=== PATIENT | male | born 1955 | race Caucasian/White ===

== ENCOUNTER 2016-10-27 17:06 | Observation (INO) | payer BC ==
[~2016-10-27] VITALS: Ht 165.1 cm; Wt 78.1 kg
[~2016-10-27 17:06] MED LIST: ALL180 PO; ASPEC81 PO; CLTP PO; FLUT0.0529 NAE; GLCSC500400 PO; LPT40 PO; MULT-877 PO; VENL150C PO
[2016-10-27] MEDS ORDERED: SODIUM CHLORIDE 0.9% 1000ML 1,000 ML IV STA (17:29)
[2016-10-27] MEDS ORDERED: ONDANSETRON INJ 2 MG/ML 2 ML VIAL IV STA (17:29)
[2016-10-27 17:34] LABS: BASO % 0.2 %; BASO ABS # 0.02 K/uL (0-0.2); COMPLETE YES; EOS % 0.7 %; HEMATOCRIT 47.2 % (42-52); IG% 0.2 %; LYMPH % 31.4 %; LYMPH ABS # 2.73 K/uL (1.2-3.4); MEAN CELL VOLUME 84.1 fL (80-100); MEAN CORPUSCULAR HEMOGLOBIN 29.9 pg (25-34); MEAN CORPUSCULAR HGB CONC 35.6 g/dl (32-36); MEAN PLATELET VOLUME 9.4 fL (7.4-10.4); MONO % 6.8 %; NEUT % 60.7 %; PLATELET COUNT 237 K/uL (130-400); RED BLOOD COUNT 5.61 M/uL (4.7-6.1)
--- NOTE | 2016-10-27 17:44 | DIAGNOSTIC IMAGING REPORT ---
CHEST ONE VIEW PORTABLE CLINICAL HISTORY: Chest pain. COMPARISON STUDY: Chest radiograph June 27, 2009. FINDINGS: Lung volumes are normal. Lungs are clear. There is no pneumothorax or pleural effusion. Cardiac size is normal. Mediastinal contours are normal. There is no evidence of pulmonary edema. IMPRESSION: No acute cardiopulmonary findings. Electronically signed by: Errol Alvarado M.D. 10/27/2016 5:42 PM Dictated Date/Time: 10/27/2016 5:41 PM
[2016-10-27 17:49] LABS: ALT/SGPT 25 U/L (12-78); AST/SGOT 12 U/L (15-37); BLOOD UREA NITROGEN 22 mg/dl (7-18); BUN/CREATININE RATIO 16.9 (10-20); CARBON DIOXIDE 22 mmol/L (21-32); CHLORIDE 109 mmol/L (98-107); GLUCOSE 127 mg/dl (70-99); POTASSIUM 3.1 mmol/L (3.5-5.1); SODIUM 142 mmol/L (136-145)
[2016-10-27 17:54] LABS: ALKALINE PHOSPHATASE 118 U/L (45-117)
[2016-10-27] MEDS ORDERED: VENL150C56 PO (17:54)
[2016-10-27] MEDS ORDERED: MULT-506 PO (17:54)
[2016-10-27] MEDS ORDERED: ATOR-24 PO (17:54)
[2016-10-27] MEDS ORDERED: ASPI81TA28 PO (17:54)
[2016-10-27] MEDS ORDERED: GLUCTAB7 PO (17:54)
[2016-10-27] MEDS ORDERED: CALC-393 PO (17:54)
[2016-10-27] MEDS ORDERED: CLR10 PO (17:54)
[2016-10-27] MEDS ORDERED: POTASSIUM CHLORIDE 10 MEQ TABCR PO STA (18:45)
[2016-10-27 19:01] LABS: URINE APPEARANCE CLEAR (CLEAR); URINE BILIRUBIN NEG (NEG); URINE COLOR YELLOW; URINE NITRITE NEG (NEG); URINE SPECIFIC GRAVITY 1.012 (1.000-1.030); UROBILINOGEN NEG (NEG); ZZUR CULT IF INDIC CLEAN CATCH NO
[2016-10-27 19:05] LABS: MANUAL MICROSCOPIC REQUIRED? NO; REVIEW REQ? NO
[2016-10-27] MEDS ORDERED: ONDANSETRON INJ 2 MG/ML 2 ML VIAL IV PRN (19:45)
[2016-10-27] MEDS ORDERED: ACETAMINOPHEN 325 MG TAB PO PRN (19:45)
[2016-10-27] MEDS ORDERED: NITROGLYCERIN 0.4 MG SL PER TAB CHARGE SL PRN (19:45)
[2016-10-27] MEDS ORDERED: FEXO1TAB49 PO (19:55)
[2016-10-27] MEDS ORDERED: CALC500C70 PO (19:55)
[2016-10-27] MEDS ORDERED: MULT-164 PO (19:55)
[2016-10-27] MEDS ORDERED: FLUT0.15 (19:55)
[2016-10-27] MEDS ORDERED: IV FLUIDS COMPLETED PRN (20:00)
[2016-10-27] MEDS ORDERED: NON-FORMULARY MEDICATION (Glucosamine-Chondroitin-Vit C- (Glucosamine Chondroitin) 1 TAB) PO SCH (20:00)
[2016-10-27 20:02] LABS: MAGNESIUM 2.6 mg/dl (1.8-2.4)
--- NOTE | 2016-10-27 20:17 | History and Physical ---
History & Physical Date & Time of Service: Oct 27, 2016 at 20:01 Chief Complaint: Shortness of Breath Primary Care Physician: Héctor Mar MD History of Present Illness 61 year old male who presents to the ER with shortness of breath. Patient reports he gets frequent sinus infections and had problems with seasonal allergies. Last evening he developed a frontal headache and post nasal drip which he reports are signs of a sinus infection for him. He reports today that with minimal exertion he would feel short of breath. He would also have associated diaphoresis. His symptoms would improve with rest. He reports the sinus pressure and post nasal drip resolved today. Patient denies chest pressure , pain, or palpitations. He denies cough and sputum production. No lightheadedness, dizziness, diaphoresis, or syncopal events. No abdominal pain, nausea, vomiting, or diarrhea. He denies fever and chills. No urinary symptoms. Patient denies any recent long travel. No calf pain or swelling. In the ER, patient's BP is mildly elevated. EKG does not show any acute ST changes and initial troponin is negative. K+ is mildly low. Remainder of the labs are unremarkable. Past Medical/Surgical History Medical Problems: (1) Anxiety Status: Chronic (2) Dyslipidemia Status: Chronic (3) ARLETTE (obstructive sleep apnea) Status: Chronic Surgical Problems: (1) H/O repair of right rotator cuff Status: Chronic (2) History of arthroscopy of left shoulder Status: Chronic Social History Smoking Status: Former Smoker (remote history of smoking in his 20s for a short period of time) Alcohol Use: occasionally Marital Status: Immunizations History of Influenza Vaccine: Yes Influenza Vaccine Date: Jul 10, 2016 History of Tetanus Vaccine?: Yes Tetanus Immunization Date: Nov 03, 2013 Multi-Drug Resistant Organisms History of MDRO: No Allergies Coded Allergies: No Known Allergies (Unverified , 01/24/16) Home Medications Scheduled Aspirin (Aspirin Ec), 81 MG PO Q2D Atorvastatin (Lipitor), 40 MG PO QPM Calcium/Vitamin D (Os-Dani 500 Plus D), 1 TAB PO DAILY Fexofenadine Hcl (Taylor Allergy), 1 TAB PO HS Fluticasone Propionate (Nasal) (Flonase Allergy Relief), 2 SPRAYS NA DAILY Akwoxpusktb-Nwksthvzyrr-Ttc C- (Glucosamine Chondroitin), 1 TAB PO AMPM Multiple Vitamin (One-A-Day Mens), 1 TAB PO DAILY Venlafaxine Hcl (Effexor Extended Rel), 150 MG PO QAM Review of Systems 10 point review of systems was completed with the pertinent positives and negatives noted per the HPI Physical Exam Vital Signs Date Time Temp Pulse Resp B/P Pulse Ox O2 Delivery O2 Flow Rate FiO2 10/27/16 18:44 54 18 161/88 99 10/27/16 17:43 55 14 149/95 96 Room Air 10/27/16 17:31 60 10/27/16 17:25 60 16 160/94 97 Room Air 10/27/16 17:21 99 Room Air 10/27/16 17:18 98 Room Air 10/27/16 17:08 36.4 85 20 153/96 98 Room Air General Appearance: no apparent distress Head: normocephalic Eyes: normal inspection ENT: hearing grossly normal Neck: supple, no JVD Respiratory/Chest: lungs clear, normal breath sounds, no respiratory distress Cardiovascular: regular rate, rhythm, no edema, normal peripheral pulses Abdomen/GI: normal bowel sounds, non tender, soft Extremities/Musculoskelatal: normal inspection, no calf tenderness Neurologic/Psych: no motor/sensory deficits, alert, normal mood/affect, oriented x 3 Skin: normal color, warm/dry Diagnostics Laboratory Results Results Past 24 Hours Test 10/27/16 17:18 10/27/16 17:44 10/27/16 18:41 Range/Units White Blood Count 8.70 4.8-10.8 K/uL Red Blood Count 5.61 4.7-6.1 M/uL Hemoglobin 16.8 14.0-18.0 g/dL Hematocrit 47.2 42-52 % Mean Corpuscular Volume 84.1 80-100 fL Mean Corpuscular Hemoglobin 29.9 25-34 pg Mean Corpuscular Hemoglobin Concent 35.6 32-36 g/dl Platelet Count 237 130-400 K/uL Mean Platelet Volume 9.4 7.4-10.4 fL Neutrophils (%) (Auto) 60.7 % Lymphocytes (%) (Auto) 31.4 % Monocytes (%) (Auto) 6.8 % Eosinophils (%) (Auto) 0.7 % Basophils (%) (Auto) 0.2 % Neutrophils # (Auto) 5.28 1.4-6.5 K/uL Lymphocytes # (Auto) 2.73 1.2-3.4 K/uL Monocytes # (Auto) 0.59 0.11-0.59 K/uL Eosinophils # (Auto) 0.06 0-0.5 K/uL Basophils # (Auto) 0.02 0-0.2 K/uL RDW Standard Deviation 41.0 36.4-46.3 fL RDW Coefficient of Variation 13.3 11.5-14.5 % Immature Granulocyte % (Auto) 0.2 % Immature Granulocyte # (Auto) 0.02 0.00-0.02 K/uL Sodium Level 142 136-145 mmol/L Potassium Level 3.1 3.5-5.1 mmol/L Chloride Level 109 98-107 mmol/L Carbon Dioxide Level 22 21-32 mmol/L Anion Gap 11.0 3-11 mmol/L Blood Urea Nitrogen 22 7-18 mg/dl Creatinine 1.30 0.60-1.40 mg/dl Est Creatinine Clear Calc Drug Dose 56.7 ml/min Estimated GFR () 67.3 Estimated GFR (Non- 58.1 BUN/Creatinine Ratio 16.9 10-20 Random Glucose 127 70-99 mg/dl Calcium Level 9.0 8.5-10.1 mg/dl Total Bilirubin 0.4 0.2-1 mg/dl Direct Bilirubin 0.1 0-0.2 mg/dl Aspartate Amino Transf (AST/SGOT) 12 15-37 U/L Alanine Aminotransferase (ALT/SGPT) 25 12-78 U/L Alkaline Phosphatase 118 45-117 U/L Troponin I < 0.015 0-0.045 ng/ml Total Protein 7.9 6.4-8.2 gm/dl Albumin 4.2 3.4-5.0 gm/dl Lipase 144 73-393 U/L Influenza Type A Antigen Neg for Influ A NEG Influenza Type B Antigen Neg for Influ B NEG Urine Color YELLOW Urine Appearance CLEAR CLEAR Urine pH 8.0 4.5-7.5 Urine Specific [place] 1.012 1.000-1.030 Urine Protein NEG NEG Urine Glucose (UA) NEG NEG Urine Ketones NEG NEG Urine Occult Blood NEG NEG Urine Nitrite NEG NEG Urine Bilirubin NEG NEG Urine Urobilinogen NEG NEG Urine Leukocyte Esterase NEG NEG Urine WBC (Auto) 1-5 0-5 /hpf Urine RBC (Auto) 0-4 0-4 /hpf Urine Hyaline Casts (Auto) 0 0-5 /lpf Urine Epithelial Cells (Auto) 10-20 0-5 /lpf Urine Bacteria (Auto) NEG NEG Diagnostic Radiology CXR IMPRESSION: No acute cardiopulmonary findings. Impression Assessment and Plan EXERTIONAL DYSPNEA - admit to tele - patient presenting with sudden onset of exertional dyspnea - work up in ER unrevealing - CXR clear, EKG without acute ST changes, initial troponin negative, saturating well on room air - consider possible anginal equivalent - will continue to cycle cardiac enzymes , check resting echo, cardio consult - risk factors: HLD, ? HTN - BPs noted to be high today however currently not on therapy - continue ASA and statin - consider outpatient PFTs if cardiac work up unrevealing; noted no significant smoking history - PE considered less likely - no risk factors for embolism, no tachycardia, hypoxia, or chest pain ELEVATED BP - no history of HTN - BPs on presentation 160s/80s - will start low dose amlodipine ARLETTE - continue BiPap as per home settings DVT PROPHYLAXIS - SCDs DISPO - The patient will be placed as observation status for now until further work up is complete. VTE Prophylaxis VTE Risk Assessment Done? Y/N: Yes Risk Level: Low Given or contraindicated: SCD's Note ATTENDING ADDENDUM Record reviewed. Patient interviewed and examined in ED ~ 19:20. Care coordinated with KATHIE Rubalcava. Please refer to her documentation for patient's history. Briefly, 61 YO male with history of dyslipidemia. Experiencing worsening dyspnea on exertion without chest pain. No history of pulmonary disease. No fever or cough. EXAM: General- no acute distress VS- as noted Neck- no JVD Lungs- clear Heart- RRR, no murmur or gallop Abdomen- + BS, soft, nontender Extremities- no pretibial edema or calf tenderness Neuro- alert DATA: Serum troponin I < 0.015. K = 3.1. Other lab studies as noted. CXR neg. EKG performed at 17:13 reviewed and demonstrated NSR at 64 / minute, no acute ST or T-wave abnormalities. ASSESSMENT AND PLAN: Dyspnea on exertion, consider myocardial ischemia. Low clinical suspicion for pulmonary embolism; Well's score = 0. Check serial cardiac markers and EKG's. Check resting echo. Consult Cardiology. Consider outpatient PFT's if cardiac workup unrevealing. BP elevated. Heart rate in 50's at times. Start amlodipine. Serum K 3.1. Replace, follow. Please refer to LESVIA Marvin's documentation for discussion of other issues. Nicolas Miller MD .
[2016-10-27 20:30] VITALS: BP 162/90; PULSE 53; TEMP 36.8; O2SAT 96; Ht 165.1 cm; Wt 78.1 kg
[2016-10-27] MEDS ORDERED: POTASSIUM CHLORIDE 20 MEQ TABCR PO ONE (20:45)
[2016-10-27] MEDS ORDERED: AMLODIPINE BESYLATE 5 MG TAB PO ONE (20:45)
[2016-10-27] MEDS ORDERED: FEXOFENADINE HCL 180 MG TAB PO SCH (21:00)
[2016-10-27] MEDS ORDERED: ATORVASTATIN 40 MG TAB PO SCH (21:00)
--- NOTE | 2016-10-27 21:38 | EMERGENCY ROOM VISIT NOTE ---
History Report prepared by Alejandra: Selvin Robbins Under the Supervision of: Dr. Alfredo Agrawal D.O. First contact with patient: 17:18 Chief Complaint: SHORTNESS OF BREATH Stated Complaint: SICK IN STOMACH,SOB,HEADACHE History of Present Illness The patient is a 61 year old male who presents to the Emergency Room with complaints of recurrent shortness of breath throughout the day today. The patient becomes short of breath with minor exertion, including walking. He also complains of sweating and nausea. He is not short of breath or sweaty at rest. The patient denies chest pain or arm pain. He had jaw pain the other day when he was trying to sleep, and he was not short of breath at that time. The patient has not been on any trips recently or had any recent surgeries. He denies any history of cardiac disease or cancer. The patient does have a history of hyperlipidemia. He is not a smoker. 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 Patient denies headache, sore throat, ear pain, change in vision, fevers, hemoptysis, vomiting, diarrhea, pain with urination, and melena. Source of History: patient Onset: today Position: other (respiratory) Quality: other (short of breath) Timing: worsening (recurrent) Modifying Factors (Worsening): exertion Associated Symptoms: + diaphoresis, + nausea, No chest pain, No cough, No diarrhea, No fevers, No headache, No melena, No urinary symptoms, No vomiting Review of Systems See HPI for pertinent positives & negatives. A total of 10 systems reviewed and were otherwise negative. Past Medical & Surgical Medical Problems: (1) Anxiety (2) Dyslipidemia (3) ARLETTE (obstructive sleep apnea) Surgical Problems: (1) H/O repair of right rotator cuff (2) History of arthroscopy of left shoulder Family History Hypertension Social History Smoking Status: Former Smoker Marital Status: Housing Status: lives with significant other Occupation Status: employed Current/Historical Medications Scheduled Aspirin (Aspirin Ec), 81 MG PO Q2D Atorvastatin (Lipitor), 40 MG PO QPM Calcium/Vitamin D (Os-Dani 500 Plus D), 1 TAB PO DAILY Fexofenadine Hcl (Taylor Allergy), 1 TAB PO HS Fluticasone Propionate (Nasal) (Flonase Allergy Relief), 2 SPRAYS NA DAILY Byyydrodics-Gnzynjvtaxb-Hdz C- (Glucosamine Chondroitin), 1 TAB PO AMPM Multiple Vitamin (One-A-Day Mens), 1 TAB PO DAILY Venlafaxine Hcl (Effexor Extended Rel), 150 MG PO QAM Allergies Coded Allergies: No Known Allergies (Unverified , 01/24/16) Physical Exam Vital Signs Date Time Temp Pulse Resp B/P Pulse Ox O2 Delivery O2 Flow Rate FiO2 10/27/16 18:44 54 18 161/88 99 10/27/16 17:43 55 14 149/95 96 Room Air 10/27/16 17:31 60 10/27/16 17:25 60 16 160/94 97 Room Air 10/27/16 17:21 99 Room Air 10/27/16 17:18 98 Room Air 10/27/16 17:08 36.4 85 20 153/96 98 Room Air Physical Exam GENERAL: Sitting up in bed, disheveled, no acute distress, nontoxic. HEAD: No frontal or maxillary sinus tenderness. EYE EXAM: normal conjunctiva, PERRL and EOM's intact EARS: TMs are clear bilaterally. OROPHARYNX: no exudate, no erythema, lips, buccal mucosa, and tongue normal and mucous membranes are moist NECK: supple, no nuchal rigidity, no adenopathy, non-tender LUNGS: Clear to auscultation. Normal chest wall mechanics HEART: no murmurs, S1 normal and S2 normal ABDOMEN: abdomen soft, non-tender, normo-active bowel sounds, no masses, no rebound or guarding. BACK: Back is symmetrical on inspection and there is no deformity, no midline tenderness, no CVA tenderness. SKIN: no rashes and no bruising UPPER EXTREMITIES: upper extremities are grossly normal. LOWER EXTREMITIES: No pitting edema. NEURO EXAM: Normal sensorium, cranial nerves II-XII grossly intact, normal speech, no gross weakness of arms, no gross weakness of legs. Gross sensation intact. Medical Decision & Procedures ER Provider Diagnostic Interpretation: Radiology results as stated below per my review and the radiologist's interpretation: CHEST ONE VIEW PORTABLE CLINICAL HISTORY: Chest pain. COMPARISON STUDY: Chest radiograph June 27, 2009. FINDINGS: Lung volumes are normal. Lungs are clear. There is no pneumothorax or pleural effusion. Cardiac size is normal. Mediastinal contours are normal. There is no evidence of pulmonary edema. IMPRESSION: No acute cardiopulmonary findings. Electronically signed by: Errol Alvarado M.D. 10/27/2016 5:42 PM Dictated Date/Time: 10/27/2016 5:41 PM Laboratory Results 10/27/16 17:18 Red Blood Count 5.61, Mean Corpuscular Volume 84.1, Mean Corpuscular Hemoglobin 29.9, Mean Corpuscular Hemoglobin Concent 35.6, Mean Platelet Volume 9.4, Neutrophils (%) (Auto) 60.7, Lymphocytes (%) (Auto) 31.4, Monocytes (%) (Auto) 6.8, Eosinophils (%) (Auto) 0.7, Basophils (%) (Auto) 0.2, Neutrophils # (Auto) 5.28, Lymphocytes # (Auto) 2.73, Monocytes # (Auto) 0.59, Eosinophils # (Auto) 0.06, Basophils # (Auto) 0.02 10/27/16 17:18 Test 10/27/16 17:18 10/27/16 17:44 10/27/16 18:41 White Blood Count 8.70 K/uL (4.8-10.8) Red Blood Count 5.61 M/uL (4.7-6.1) Hemoglobin 16.8 g/dL (14.0-18.0) Hematocrit 47.2 % (42-52) Mean Corpuscular Volume 84.1 fL (80-100) Mean Corpuscular Hemoglobin 29.9 pg (25-34) Mean Corpuscular Hemoglobin Concent 35.6 g/dl (32-36) Platelet Count 237 K/uL (130-400) Mean Platelet Volume 9.4 fL (7.4-10.4) Neutrophils (%) (Auto) 60.7 % Lymphocytes (%) (Auto) 31.4 % Monocytes (%) (Auto) 6.8 % Eosinophils (%) (Auto) 0.7 % Basophils (%) (Auto) 0.2 % Neutrophils # (Auto) 5.28 K/uL (1.4-6.5) Lymphocytes # (Auto) 2.73 K/uL (1.2-3.4) Monocytes # (Auto) 0.59 K/uL (0.11-0.59) Eosinophils # (Auto) 0.06 K/uL (0-0.5) Basophils # (Auto) 0.02 K/uL (0-0.2) RDW Standard Deviation 41.0 fL (36.4-46.3) RDW Coefficient of Variation 13.3 % (11.5-14.5) Immature Granulocyte % (Auto) 0.2 % Immature Granulocyte # (Auto) 0.02 K/uL (0.00-0.02) Anion Gap 11.0 mmol/L (3-11) Est Creatinine Clear Calc Drug Dose 56.7 ml/min Estimated GFR () 67.3 Estimated GFR (Non- 58.1 BUN/Creatinine Ratio 16.9 (10-20) Calcium Level 9.0 mg/dl (8.5-10.1) Magnesium Level 2.6 mg/dl (1.8-2.4) Total Bilirubin 0.4 mg/dl (0.2-1) Direct Bilirubin 0.1 mg/dl (0-0.2) Aspartate Amino Transf (AST/SGOT) 12 U/L (15-37) Alanine Aminotransferase (ALT/SGPT) 25 U/L (12-78) Alkaline Phosphatase 118 U/L (45-117) Troponin I < 0.015 ng/ml (0-0.045) Total Protein 7.9 gm/dl (6.4-8.2) Albumin 4.2 gm/dl (3.4-5.0) Lipase 144 U/L (73-393) Influenza Type A Antigen Neg for Influ A (NEG) Influenza Type B Antigen Neg for Influ B (NEG) Urine Color YELLOW Urine Appearance CLEAR (CLEAR) Urine pH 8.0 (4.5-7.5) Urine Specific [place] 1.012 (1.000-1.030) Urine Protein NEG (NEG) Urine Glucose (UA) NEG (NEG) Urine Ketones NEG (NEG) Urine Occult Blood NEG (NEG) Urine Nitrite NEG (NEG) Urine Bilirubin NEG (NEG) Urine Urobilinogen NEG (NEG) Urine Leukocyte Esterase NEG (NEG) Urine WBC (Auto) 1-5 /hpf (0-5) Urine RBC (Auto) 0-4 /hpf (0-4) Urine Hyaline Casts (Auto) 0 /lpf (0-5) Urine Epithelial Cells (Auto) 10-20 /lpf (0-5) Urine Bacteria (Auto) NEG (NEG) Laboratory results per my review. Medications Administered Medications (Trade) Dose Ordered Sig/Yina Route Start Time Stop Time Status Last Admin Dose Admin Sodium Chloride (Nss 1000ml) 1,000 ml @ 999 mls/hr Q1H1M STAT IV 10/27/16 17:29 10/27/16 18:29 DC 10/27/16 17:29 999 MLS/HR Ondansetron HCl (Zofran Inj) 4 mg NOW STAT IV 10/27/16 17:29 10/27/16 17:30 DC 10/27/16 17:29 4 MG Potassium Chloride (Klor-Con M10) 40 meq NOW STAT PO 10/27/16 18:45 10/27/16 18:46 DC 10/27/16 18:55 40 MEQ ECG Indication: SOB/dyspnea Rate (beats per minute): 64 Rhythm: sinus rhythm Findings: left axis deviation, no ectopy Comparison ECG Date: 03 February 2013 Change: no significant change ED Course ED COURSE: Vital signs were reviewed and showed hypertension. The patients medical record was reviewed The above diagnostic studies were performed and reviewed. ED treatments and interventions as stated above. 1720: The patient was evaluated in room C1b. A complete history and physical examination was performed. 1729: Zofran 4 mg IV, NSS 1000 ml @ 999 mls/hr. 1845: Potassium Chloride 40 meq IV. 1908: Discussed the case with KATHIE Rubalcava, [facility] Hospitalist. The patient will be evaluated. 1910: Upon reevaluation, the patient is doing well.I discussed my findings with the patient and he understands and agrees with the treatment plan. Based on the patients age, coexisting illnesses, exam and lab findings the decision to treat as an inpatient was made. The patient remained stable while under my care. The patient will be evaluated for further management. Medical Decision Differential diagnosis: Etiologies such as infections, reactive airway disease, pneumonia, pneumothorax, COPD, CHF, cardiac ischemia, pulmonary embolism, musculoskeletal, gastrointestinal, as well as others were entertained. Patient is a 61-year-old male who presents the ER for exertional shortness of breath associated with diaphoresis and nausea. He has no abdominal complaints. No chest pain. EKG is unchanged from his previous. Troponin was negative as well as chest x-ray was unremarkable. CBC along with BMP show a mild hypokalemia at 3.1. Bilirubin along with AST were unremarkable. Lipase was normal. Influenza was negative. Although I favor his symptoms are likely viral , exertional shortness of breath a/w nausea and diaphoresis is concerning as these resolved with rest for possible anginal equivalent. I discussed this with internal medicine patient was observed. Patient and family were updated at bedside. Consults Time Called: 1899 Consulting Physician: KATHIE Rubalcava [facility] Hospitalist Returned Call: 1907 1907: Discussed the case with KATHIE Rubalcava [facility] Hospitalist. The patient will be evaluated. Impression Primary Impression: Exertional dyspnea Additional Impression: Hypokalemia Scribe Attestation The scribe's documentation has been prepared under my direction and personally reviewed by me in its entirety. I confirm that the note above accurately reflects all work, treatment, procedures, and medical decision making performed by me. Departure Information Dispostion Being Evaluated By Hospitalist Referrals Héctor Mar MD (PCP) Patient Instructions My [facility] Problem Qualifiers
[2016-10-27 23:31] VITALS: BP 133/75; PULSE 58; TEMP 36.9; O2SAT 95
[2016-10-28 04:01] VITALS: BP 124/74; PULSE 56; TEMP 36.7; O2SAT 95
[2016-10-28 05:22] LABS: HEMATOCRIT 44.4 % (42-52); MEAN CELL VOLUME 86.2 fL (80-100); MEAN CORPUSCULAR HEMOGLOBIN 29.7 pg (25-34); MEAN CORPUSCULAR HGB CONC 34.5 g/dl (32-36); MEAN PLATELET VOLUME 9.6 fL (7.4-10.4); PLATELET COUNT 224 K/uL (130-400); RED BLOOD COUNT 5.15 M/uL (4.7-6.1); WHITE BLOOD COUNT 7.97 K/uL (4.8-10.8)
[2016-10-28 05:44] LABS: BLOOD UREA NITROGEN 18 mg/dl (7-18); BUN/CREATININE RATIO 16.7 (10-20); CALCIUM 8.5 mg/dl (8.5-10.1); CARBON DIOXIDE 26 mmol/L (21-32); CHLORIDE 113 mmol/L (98-107); GLUCOSE 106 mg/dl (70-99); POTASSIUM 4.5 mmol/L (3.5-5.1); SODIUM 145 mmol/L (136-145)
[2016-10-28 05:53] LABS: CHOLESTEROL 165 mg/dl (0-200); CHOLESTEROL/HDL RATIO 3.8; HDL CHOLESTEROL 44 mg/dl; LDL CHOLESTEROL CALCULATED 90 mg/dl; TRIGLYCERIDES 155 mg/dl (0-150); VERY LOW DENSITY LIPOPROT CALC 31 mg/dl
[2016-10-28 07:49] VITALS: BP 129/82; PULSE 68; TEMP 37; O2SAT 95
[2016-10-28] MEDS ORDERED: AMLODIPINE BESYLATE 5 MG TAB PO SCH (09:00)
[2016-10-28] MEDS ORDERED: FLUTICASONE PROPIONATE NA SPR 16 GM BTL SCH (09:00)
[2016-10-28] MEDS ORDERED: MULTIVITAMIN TAB PO SCH (09:00)
[2016-10-28] MEDS ORDERED: CALCIUM 600MG + VIT D 400 IU TAB PO SCH (09:00)
[2016-10-28] MEDS ORDERED: VENLAFAXINE HCL XR 150 MG CAPXR PO SCH (09:00)
[2016-10-28] MEDS ORDERED: ASPIRIN 81 MG ECTAB PO SCH (09:00)
--- NOTE | 2016-10-28 09:31 | ECHOCARDIOGRAM REPORT ---
*NOTICE TO RECEIVING [employer]Y This information is strictly Confidential and protected under [place] law. [place] law prohibits you from making any further disclosure of this information unless further disclosure is expressly permitted by the written consent of the person to whom it pertains or is authorized by law. A general authorization for the release of medical or other information is not sufficient for this purpose. Hospital accepts no responsibility if the information is made available to any other person, INCLUDING THE PATIENT. Interpretation Summary * Name: MELYSSA ANN Study Date: 10/28/2016 08:03 AM BP: 129/82 mmHg * Patient Location: S244 HR: 55 * : 1955 (M/d/yyyy) Gender: Male Height: 65 in * Age: 61 yrs Ethnicity: [place] Weight: 176 lb * Ordering Physician: Apple Marvin * Referring Physician: Self, Referred * Performed By: Tere Mclean RCS * * Reason For Study: EXERTIONAL DYSPNEA * BSA: 1.9 m2 * -- Conclusions -- * Normal LV chamber size with mild concentric LVH. * Normal LV systolic function, EF 55-60%. * No segmental left ventricular wall motion abnormalities are noted. * Grade II diastolic dysfunction. * Physiologic/minimal aortic insufficiency. Procedure Details * A complete two-dimensional transthoracic echocardiogram was performed (2D, M-mode, Doppler and color flow Doppler). Left Ventricle * The left ventricle is normal in size. * There is mild concentric left ventricular hypertrophy. * Ejection Fraction = 55-60%. * Left ventricular systolic function is normal. * No segmental left ventricular wall motion abnormalities are noted. * The left ventricular wall motion is normal. Right Ventricle * The right ventricular cavity size is normal (basal dimension <4.2 cm in right ventricular apical 4-chamber view). * The right ventricular systolic function is normal as assessed by tricuspid annular plane systolic excursion (TAPSE) (normal >1.5 cm). Atria * The left atrial size is normal. * Right atrial size is normal. * No ASD detected; PFO is not assessed. Mitral Valve * The mitral valve is normal in structure and function. Tricuspid Valve * The tricuspid valve is normal in structure and function. Aortic Valve * The aortic valve is trileaflet. * Physiologic/minimal aortic insufficiency. Pulmonic Valve * The pulmonary valve is not well seen, but the Doppler examination is normal without significant regurgitation or stenosis. Great Vessels * The aortic root and proximal ascending aorta are normal sized. Pericardium/Pleural * There is no pericardial effusion. Left Ventricular Diastolic Function * Diastolic dysfunction, Grade II (pseudonormalization pattern). MMode 2D Measurements and Calculations IVSd 1.4 cm IVSs 1.7 cm LVIDd 4.8 cm LVIDs 3.3 cm LVPWd 1.1 cm LVPWs 1.4 cm IVS/LVPW 1.3 FS 32.0 % EDV(Teich) 106.5 ml ESV(Teich) 42.6 ml EF(Teich) 60.0 % EDV(cubed) 109.3 ml ESV(cubed) 34.4 ml EF(cubed) 68.5 % % IVS thick 17.5 % % LVPW thick 29.3 % LV mass(C)d 233.1 grams LV mass(C)dI 124.4 grams/m\S\2 LV mass(C)s 184.3 grams LV mass(C)sI 98.4 grams/m\S\2 SV(Teich) 63.9 ml SI(Teich) 34.1 ml/m\S\2 SV(cubed) 74.8 ml SI(cubed) 39.9 ml/m\S\2 Ao root diam 3.7 cm Ao root area 10.7 cm\S\2 ACS 2.3 cm LA dimension 3.5 cm LA/Ao 0.94 LVOT diam 2.0 cm LVOT area 3.1 cm\S\2 LVAd ap4 32.8 cm\S\2 LVLd ap4 7.5 cm EDV(MOD-sp4) 112.0 ml EDV(sp4-el) 121.2 ml LVAs ap4 18.5 cm\S\2 LVLs ap4 5.7 cm ESV(MOD-sp4) 49.5 ml ESV(sp4-el) 51.2 ml EF(MOD-sp4) 55.8 % EF(sp4-el) 57.7 % LVAd ap2 27.9 cm\S\2 LVLd ap2 7.3 cm EDV(MOD-sp2) 83.7 ml EDV(sp2-el) 89.7 ml LVAs ap2 14.6 cm\S\2 LVLs ap2 5.7 cm ESV(MOD-sp2) 32.1 ml ESV(sp2-el) 31.9 ml EF(MOD-sp2) 61.7 % EF(sp2-el) 64.5 % LVLd %diff -2.69 % EDV(MOD-bp) 98.1 ml LVLs %diff -0.29 % ESV(MOD-bp) 39.9 ml EF(MOD-bp) 59.4 % SV(MOD-sp4) 62.5 ml SI(MOD-sp4) 33.3 ml/m\S\2 SV(MOD-sp2) 51.6 ml SI(MOD-sp2) 27.5 ml/m\S\2 SV(MOD-bp) 58.3 ml SI(MOD-bp) 31.1 ml/m\S\2 SV(sp4-el) 70.0 ml SI(sp4-el) 37.4 ml/m\S\2 SV(sp2-el) 57.8 ml SI(sp2-el) 30.9 ml/m\S\2 Doppler Measurements and Calculations MV E max tr 63.1 cm/sec MV A max tr 58.8 cm/sec MV E/A 1.1 MV P1/2t max tr 75.9 cm/sec MV P1/2t 75.4 msec MVA(P1/2t) 2.9 cm\S\2 MV dec slope 294.8 cm/sec\S\2 MV dec time 0.25 sec Ao V2 max 109.1 cm/sec Ao max PG 4.8 mmHg Ao max PG (full) 2.1 mmHg ASHLEIGH(V,A) 2.4 cm\S\2 ASHLEIGH(V,D) 2.4 cm\S\2 LV V1 max PG 2.7 mmHg LV V1 max 81.9 cm/sec PA V2 max 92.3 cm/sec PA max PG 3.4 mmHg TR max tr 239.9 cm/sec
[2016-10-28 11:30] VITALS: BP 120/70; PULSE 56; TEMP 37.1; O2SAT 98
--- NOTE | 2016-10-28 13:35 | Progress Note ---
Internal Med Progress Note Date of Service: Oct 28, 2016. Provider Documentation: SUBJECTIVE: feels absolutely fine no complain of chest pain or SOB no ALEXANDRA evaluated by Cardiology earlier stable to be discharged home out pt follow with Cardiac stress test at [facility] Cardiology clinic OBJECTIVE: Vital Signs-as noted below Exam: General-no sign of distress, very pleasant Eyes-sclera non icteric , PERRLA/EOMI ENT-NAD Neck-supple, trachea midline , no thyromegaly Lungs-CTA ,no wheeze or rales Heart-regular , S1/S2 Abdomen-soft, non tender Extremities-no lower ext edema , no calf tenderness Neuro-AAO x3, no focal neurological deficit Lab data as noted below. ASSESSMENT & PLAN: EXERTIONAL DYSPNEA - symptom has resolved - work up has been unrevealing - CXR clear, EKG without acute ST changes, initial troponin negative, saturating well on room air - ECHO ordered continue ASA and statin appreciate input form cardiology no evidence of ACS out pt Cardiac stress test ; Cardiology office will schedule and call with appointment stable to be discharged home today HTN -much improved after addition of low dose Norvasc - no history of HTN - BPs on presentation 160s/80s - started low dose amlodipine -will be discharged home with 2.5 mg PO Norvasc -will have out pt follow up with Family Physician for BP monitoring and medication adjustment if needed ARLETTE - continue BiPap as per home settings at night DVT PROPHYLAXIS - SCDs -ambulate DISPOSITION Discharge home today Vital Signs: Lab Results:
--- NOTE | 2016-10-28 13:37 | Discharge Instructions ---
Discharge Instructions Date of Service Oct 28, 2016. Admission Reason for Admission: Exertional Dyspnea Discharge Discharge Diagnosis / Problem: EXERTIONAL SHORTNESS OF BREATH /NO CARDIAC EVENT /CHRONIC SINUS HEADACHE / Discharge Goals Goal(s): Improve disease control, Diagnostic testing, Therapeutic intervention Activity Recommendations Activity Limitations: resume your previous activity . Instructions / Follow-Up Instructions / Follow-Up HOSPITAL FOLLOW UP WITH DR RIVERA IN A WEEK -OFFICE WILL CALL WITH APPOINTMENT YOU ARE STARTED ON A NEW MEDICATION : NORVASC 2.5 MG BY MOUTH DAILY PLEASE FOLLOW UP WITH DR RIVERA FOR FURTHER FOLLOW UP FOR BLOOD PRESSURE MANAGEMENT AND MEDICATION DOSE ADJUSTMENT IF NEEDED OUT PATIENT CARDIAC STRESS TEST AT [facility] -OFFICE WILL CALL WITH APPOINTMENT CT OF HEAD AND SINUSES OUT PATIENT -FOR CHRONIC SINUS HEADACHE PLEASE HAVE ENT FOLLOW UP TO ASSESS CHRONIC SINUSITIS /HEADACHE Current Hospital Diet Patient's current hospital diet: AHA Diet (Heart Healthy) Discharge Diet Recommended Diet: AHA Diet (Heart Healthy) Pending Studies Studies pending at discharge: yes List of pending studies: CT OF HEAD AND SINUS -FOR CHRONIC SINUSITIS /SINUS HEADACHE Laboratory Results Hemoglobin A1c Test 10/27/16 17:18 Range/Units Lipid Panel Test 10/28/16 05:10 Range/Units Triglycerides Level 155 H 0-150 mg/dl Cholesterol Level 165 0-200 mg/dl HDL Cholesterol 44 mg/dl Cholesterol/HDL Ratio 3.8 LDL Cholesterol, Calculated 90 mg/dl Medical Emergencies . Who to Call and When: Medical Emergencies: If at any time you feel your situation is an emergency, please call 911 immediately. . Non-Emergent Contact Non-Emergency issues call your: Primary Care Provider . . "Provider Documentation" section prepared by Laury Rangel. VTE Core Measure Inpt VTE Proph given/why not?: SCD's [place] Drug Monitoring Program Search Results: no issues identified
[2016-10-28] MEDS ORDERED: AMLO-110 PO (13:48)
--- NOTE | 2016-10-28 13:49 | CARDIOLOGY CONSULTATION ---
DATE OF CONSULTATION: 10/28/2016 CONSULTATION REQUESTED BY: Dr. Rangel. REASON FOR CONSULTATION: Shortness of breath. HISTORY OF PRESENT ILLNESS: Mr. Salcedo is a very pleasant 61-year-old gentleman who presented to [facility] Emergency Department on 10/27/2016 with a complaint of shortness of breath and diaphoresis. The patient states that he is recently getting overt sinus infection, which he gets on a regular basis. He states for the last several days, he has been having a frontal headache along with increased sinus pressure, upper airway difficulty breathing and some nausea secondary to postnasal drip. He states that he felt as though the infection was starting to break; however, yesterday when anytime he would go outside in the yard, his symptoms would worsen, his sinus pressure would increase, his headache would increase, he did have more difficulty moving air in his upper airway and he became diaphoretic. He states that this is similar to similar to previous sinus infections in the past; however, he came into the Emergency Room anyway. In the Emergency Room, his initial evaluation was unremarkable and he was admitted to telemetry. He denied ever experiencing any chest pain, shortness of breath, chest palpitations, lightheadedness, dizziness, or syncope. PAST SURGICAL HISTORY: 1. Bilateral shoulder surgeries. 2. Wrist surgery. PAST MEDICAL HISTORY: 1. Dyslipidemia. 2. Seasonal allergies. 3. Anxiety. 4. Obstructive sleep apnea, intolerant of CPAP. FAMILY HISTORY: Denies any premature coronary artery disease or sudden cardiac . SOCIAL HISTORY: The patient has a very remote tobacco use history. Social cigarettes in his 20s. Drinks occasional alcohol. Denies any recreational drug use. He is and lives at home with his . He has 3 kids. 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 He does not exercise outside of work. REVIEW OF SYSTEMS: As per HPI, all other systems reviewed and negative at this time. ALLERGIES: No known drug allergies. MEDICATIONS AN OUTPATIENT: 1. Aspirin 81 mg every other day. 2. Atorvastatin 40 mg daily. 3. Taylor daily. 4. Flonase daily. 5. Multivitamin daily. 6. Effexor daily. PHYSICAL EXAMINATION: VITAL SIGNS: Temperature 37.1, pulse 56, respiratory rate 12, and blood pressure 120/70. GENERAL: Awake, alert, and oriented x3 in no acute distress. The patient does have a nasal voice, likely secondary to sinus congestion. HEENT: Normocephalic and atraumatic. Pupils are equal, round, and reactive to light and accommodation. Extraocular muscles intact. Anicteric sclerae. Moist mucous membranes. NECK: No JVD and no bruit. CARDIOVASCULAR: Regular. No S4. Normal S1 and S2. No S3. No murmurs, rubs or gallops. PULMONARY: Clear to auscultation bilaterally. No rales, rhonchi, or wheezing. ABDOMEN: Bowel sounds x4, soft. No rebound, guarding, or tenderness. No organomegaly. EXTREMITIES: No clubbing, cyanosis or edema. +2 pedal pulses bilaterally. SKIN: Warm and dry. TEST RESULTS: Two-D echocardiogram was read as normal LV chamber size with mild concentric LVH, normal LV systolic function, EF 55%-60%, no segmental wall motion abnormalities were noted, grade 2 diastolic dysfunction, and physiologic/minimal aortic insufficiency. Chest x-ray performed in the Emergency Department independently reviewed at this time shows normal sinus rhythm, left axis deviation, questionable decrease in the amplitude of the anterior T waves. However, no signs of active ischemia. LABORATORY STUDIES OF SIGNIFICANCE: Troponin negative x3. CPK of 118. IMPRESSION: 1. Sinus infection. 2. Chronic sinusitis. 3. Episode of diaphoresis. RECOMMENDATIONS: and Mrs. Salcedo were counseled that I highly doubt that this was a cardiac event and I have recommended [id number] treatment for his sinusitis along with followup with his primary care physician. For completeness sake, given his risk factors for coronary artery disease along with the fact that he did have some diaphoresis with exertion, we will perform an outpatient stress test as per the patient's preference. Otherwise, no medication changes will be made at this time. It is okay to discharge the patient to home from a cardiac standpoint. My office will arrange outpatient stress testing.
--- NOTE | 2016-10-28 13:56 | Discharge Summary ---
Discharge Summary Date of Service Oct 28, 2016. Discharge Summary Admission Date: Oct 27, 2016 at 19:42 Discharge Date: Oct 28, 2016 Discharge Disposition: Home Principal Diagnosis: EXERTIONAL SHORTNESS OF BREATH /NO CARDIAC EVENT /CHRONIC SINUS HEADACHE / Procedures: ECHO : 10/28/16 * Normal LV chamber size with mild concentric LVH. * Normal LV systolic function, EF 55-60%. * No segmental left ventricular wall motion abnormalities are noted. * Grade II diastolic dysfunction. * Physiologic/minimal aortic insufficiency. Consultations: [facility] CARDIOLOG[facility] DR VIRGIL DINERO Pending Studies/Follow-Up: HOSPITAL FOLLOW UP WITH DR RIVERA IN A WEEK -OFFICE WILL CALL WITH APPOINTMENT YOU ARE STARTED ON A NEW MEDICATION : NORVASC 2.5 MG BY MOUTH DAILY PLEASE FOLLOW UP WITH DR RIVERA FOR FURTHER FOLLOW UP FOR BLOOD PRESSURE MANAGEMENT AND MEDICATION DOSE ADJUSTMENT IF NEEDED OUT PATIENT CARDIAC STRESS TEST AT [facility] -OFFICE WILL CALL WITH APPOINTMENT CT OF HEAD AND SINUSES OUT PATIENT -FOR CHRONIC SINUS HEADACHE PLEASE HAVE ENT FOLLOW UP TO ASSESS CHRONIC SINUSITIS /HEADACHE Medication Reconciliation New Medications: Amlodipine (Norvasc) 5 Mg Tab 2.5 MG PO DAILY for 30 Days, #15 TAB 2 Refills Continued Medications: Aspirin (Aspirin Ec) 81 Mg Tab 81 MG PO Q2D Atorvastatin (Lipitor) 40 Mg Tab 40 MG PO QPM, TAB Calcium/Vitamin D (Os-Dani 500 Plus D) Tab 1 TAB PO DAILY, TAB Fexofenadine Hcl (Taylor Allergy) 180 Mg Tab 1 TAB PO HS for 30 Days, TAB 2 Refills Fluticasone Propionate (Nasal) (Flonase Allergy Relief) 50 Mcg/Act Spr 2 SPRAYS NA DAILY Lpgqryjrxok-Tebjwejegvl-Nvt C- (Glucosamine Chondroitin) 1 Tab Tab 1 TAB PO AMPM Multiple Vitamin (One-A-Day Mens) 1 Tab Tab 1 TAB PO DAILY Venlafaxine Hcl (Effexor Extended Rel) 150 Mg Cap 150 MG PO QAM, CAP Admission Information HPI (per Admitting provider): 61 year old male who presents to the ER with shortness of breath. Patient reports he gets frequent sinus infections and had problems with seasonal allergies. Last evening he developed a frontal headache and post nasal drip which he reports are signs of a sinus infection for him. He reports today that with minimal exertion he would feel short of breath. He would also have associated diaphoresis. His symptoms would improve with rest. He reports the sinus pressure and post nasal drip resolved today. Patient denies chest pressure , pain, or palpitations. He denies cough and sputum production. No lightheadedness, dizziness, diaphoresis, or syncopal events. No abdominal pain, nausea, vomiting, or diarrhea. He denies fever and chills. No urinary symptoms. Patient denies any recent long travel. No calf pain or swelling. In the ER, patient's BP is mildly elevated. EKG does not show any acute ST changes and initial troponin is negative. K+ is mildly low. Remainder of the labs are unremarkable. Physical Exam (per Admitting): General Appearance: no apparent distress Head: normocephalic Eyes: normal inspection ENT: hearing grossly normal Neck: supple, no JVD Respiratory/Chest: lungs clear, normal breath sounds, no respiratory distress Cardiovascular: regular rate, rhythm, no edema, normal peripheral pulses Abdomen/GI: normal bowel sounds, non tender, soft Extremities/Musculoskelatal: normal inspection, no calf tenderness Neurologic/Psych: no motor/sensory deficits, alert, normal mood/affect, oriented x 3 Skin: normal color, warm/dry Hospital Course EXERTIONAL DYSPNEA - symptom has resolved - work up has been unrevealing - CXR clear, EKG without acute ST changes, initial troponin negative, saturating well on room air - ECHO ordered continue ASA and statin appreciate input form cardiology no evidence of ACS out pt Cardiac stress test ; Cardiology office will schedule and call with appointment stable to be discharged home today HTN -much improved after addition of low dose Norvasc - no history of HTN - BPs on presentation 160s/80s - started low dose amlodipine -will be discharged home with 2.5 mg PO Norvasc -will have out pt follow up with Family Physician for BP monitoring and medication adjustment if needed SINUS HEADACHE ; complains of frontal headache, with sinus pressure and post nasal drip pain rad already been using Flonase out pt follow up with ENT no fever or chills, no sinus pain and CT of sinus at [facility] ARLETTE - continue BiPap as per home settings at night DVT PROPHYLAXIS - SCDs -ambulate DISPOSITION Discharge home today Discharge Instructions Discharge Instructions Date of Service Oct 28, 2016. Admission Reason for Admission: Exertional Dyspnea Discharge Discharge Diagnosis / Problem: EXERTIONAL SHORTNESS OF BREATH /NO CARDIAC EVENT /CHRONIC SINUS HEADACHE / Discharge Goals Goal(s): Improve disease control, Diagnostic testing, Therapeutic intervention Activity Recommendations Activity Limitations: resume your previous activity . Instructions / Follow-Up Instructions / Follow-Up HOSPITAL FOLLOW UP WITH DR RIVERA IN A WEEK -OFFICE WILL CALL WITH APPOINTMENT YOU ARE STARTED ON A NEW MEDICATION : NORVASC 2.5 MG BY MOUTH DAILY PLEASE FOLLOW UP WITH DR RIVERA FOR FURTHER FOLLOW UP FOR BLOOD PRESSURE MANAGEMENT AND MEDICATION DOSE ADJUSTMENT IF NEEDED OUT PATIENT CARDIAC STRESS TEST AT [facility] -OFFICE WILL CALL WITH APPOINTMENT CT OF HEAD AND SINUSES OUT PATIENT -FOR CHRONIC SINUS HEADACHE PLEASE HAVE ENT FOLLOW UP TO ASSESS CHRONIC SINUSITIS /HEADACHE Current Hospital Diet Patient's current hospital diet: AHA Diet (Heart Healthy) Discharge Diet Recommended Diet: AHA Diet (Heart Healthy) Pending Studies Studies pending at discharge: yes List of pending studies: CT OF HEAD AND SINUS -FOR CHRONIC SINUSITIS /SINUS HEADACHE Laboratory Results Hemoglobin A1c Test 10/27/16 17:18 Range/Units Lipid Panel Test 10/28/16 05:10 Range/Units Triglycerides Level 155 H 0-150 mg/dl Cholesterol Level 165 0-200 mg/dl HDL Cholesterol 44 mg/dl Cholesterol/HDL Ratio 3.8 LDL Cholesterol, Calculated 90 mg/dl Medical Emergencies . Who to Call and When: Medical Emergencies: If at any time you feel your situation is an emergency, please call 911 immediately. . Non-Emergent Contact Non-Emergency issues call your: Primary Care Provider . . "Provider Documentation" section prepared by Laury Rangel. VTE Core Measure Inpt VTE Proph given/why not?: SCD's [place] Drug Monitoring Program Search Results: no issues identified Additional Copies To Virgil Dinero D.O. Doberstein, Timothy F., MD
[2016-10-28 13:57] VITALS: BP 120/70; PULSE 56; TEMP 37.1; O2SAT 98
[2016-10-29 08:13] LABS: ESTIMATED AVERAGE GLUCOSE 126 mg/dl; HA1C FLAG Normal (Normal)
== END 2016-10-28 14:18 | disposition home or self-care (01) ==
LOC: ENRESERVTM → ENRESERVDT → C.EDB 17:07 → C.2T 19:42
PROVIDERS: ADMIT Hospitalist; ATTEND Hospitalist
DX: R06.02 Shortness of breath (principal); J32.9 Chronic sinusitis, unspecified; I10 Essential (primary) hypertension; F41.9 Anxiety disorder, unspecified; E78.5 Hyperlipidemia, unspecified; E87.6 Hypokalemia; G47.33 Obstructive sleep apnea (adult) (pediatric); Z87.891 Personal history of nicotine dependence; Z79.82 Long term (current) use of aspirin

== ENCOUNTER 2018-09-27 10:31 | Observation (INO) ==
[2018-09-27] MEDS ORDERED: ASPIRIN CHEW 324 MG PO STA (10:51)
[2018-09-27 11:10] LABS: Basophils # (auto) 0.02 K/uL (0-0.2); Basophils % (auto) 0.3 %; Eosinophils # (auto) 0.28 K/uL (0-0.5); Eosinophils % (auto) 3.9 %; Hematocrit (blood only) 44.9 % (42-52); Hemoglobin 15.5 g/dL (14.0-18.0); Immature Granulocytes # (auto) 0.02 K/uL (0.00-0.02); Immature Granulocytes % (auto) 0.3 %; Lymphocytes # (auto) 1.65 K/uL (1.2-3.4); Lymphocytes % (auto) 22.8 %; Mean Corpuscular Hgb Conc 34.5 g/dL (32-36); Mean Corpuscular Volume 91.6 fL (80-100); Mean Platelet Volume 9.5 fL (7.4-10.4); Monocytes # (auto) 0.36 K/uL (0.11-0.59); Neutrophils # (auto) 4.91 K/uL (1.4-6.5); Neutrophils % (auto) 67.7 %; Platelet Count 201 K/uL (130-400); RDW Coefficient of Variation 12.5 % (11.5-14.5); RDW Standard Deviation 42.1 fL (36.4-46.3); White Blood Count 7.24 K/uL (4.8-10.8)
[2018-09-27 11:28] LABS: Alanine Aminotransferase 32 U/L (12-78); Albumin Level 3.6 gm/dl (3.4-5.0); Aspartate Aminotransferase 15 U/L (15-37); BUN Creatinine Ratio 15.8 (10-20); Blood Urea Nitrogen 16 mg/dl (7-18); Calcium 8.6 mg/dl (8.5-10.1); Carbon Dioxide 31 mmol/L (21-32); Chloride 105 mmol/L (98-107); Creatinine Clr Calc Pharmacy 73.5 ml/min; Est GFR (African American) 93.4; Est GFR (Non-African American) 80.6; Glucose 97 mg/dl (70-99); Potassium 3.8 mmol/L (3.5-5.1); Sodium 138 mmol/L (136-145)
[2018-09-27 11:32] LABS: D Dimer < 190 ug/L FEU (0-500)
[2018-09-27 11:33] LABS: Alkaline Phosphatase 94 U/L (45-117); Bilirubin,Total 0.5 mg/dl (0.2-1); Globulin 3.5 gm/dl (2.5-4.0); Total Protein 7.1 gm/dl (6.4-8.2); Troponin I < 0.015 ng/ml (0-0.045)
--- NOTE | 2018-09-27 11:38 | XRay Report ---
SINGLE VIEW CHEST CLINICAL HISTORY: Atypical chest pain. FINDINGS: An AP, portable, upright chest radiograph is compared to study dated 10/27/2016. The examina tion is degraded by portable technique and apical lordotic positioning. The cardiomediastinal silhou ette is unremarkable. The lungs and pleural spaces are clear. No pneumothorax is seen. There are heal ed left-sided rib fractures. IMPRESSION: No active disease in the chest. Electronically signed by: Himanshu Sánchez M.D. 09/27/2018 11:37 AM
--- NOTE | 2018-09-27 16:04 | History & Physical Report ---
Date of Service September 27, 2018 Assessment & Plan (1) Chest pain: This is a 63-year-old male with significant past medical history of HTN, HLD, diastolic dysfunction, ARLETTE intolerant to CPAP, tobacco abuse, GREG presents to [facility] secondary to chest pain and ALEXANDRA times 3 days. In ED workup relatively unremarkable. Blood pressure adequate at 128/73, initial troponin within normal limits, chest x-ray negative for acute abnormality, EKG normal sinus rhythm without ST or T wave changes. Further lab work including a CBC, CMP, d-dimer, lipase, TSH were within normal limits. DDX but not limited to: Coronary artery disease, obstructive sleep apnea-not tolerating CPAP, possible COPD given prior smoking history, pulmonary hypertension, valvular heart disease -Admit to telemetry under observation -Obtain resting echocardiogram -Serial troponins -Repeat ECG in a.m. -If workup unremarkable refer back to Dr. Dinero for repeat stress testing as well as follow-up with pulmonary/sleep medicine -Continue ASA/statin therapy -Obtain fasting lipid panel in a.m. (2) HTN (hypertension): -Blood pressure controlled continue amlodipine (3) Dyslipidemia: -Continue statin, fasting lipid panel in a.m. (4) ARLETTE (obstructive sleep apnea): -Patient intolerant to CPAP/BiPAP -Follows outpatient pulmonary/sleep medicine -Would recommend follow-up with the above for other treatment options of ARLETTE as this may be contributing to profound fatigue (5) GREG (generalized anxiety disorder): -Continue venlafaxine (6) Tobacco abuse: -Encourage cessation of smokeless tobacco (7) DVT prophylaxis: -Patient low risk will encourage ambulation Disposition: Discharged home when able Follow-up: PCP Dr. Mar upon discharge,cardiology follow-up and outpatient stress testing if inpatient workup unremarkable, pulmonary/sleep medicine for further evaluation and treatment of ARLETTE. Patient was seen and examined in collaboration with Dr. Amador, please see addendum. History of Present Illness Chief Complaint: Chest discomfort and ALEXANDRA times 3 days. Primary Care Provider: Héctor Mar MD This is a 63-year-old male with significant past medical history of HTN, HLD, diastolic dysfunction, ARLETTE intolerant to CPAP, tobacco abuse, GREG presents to [facility] secondary to chest pain and ALEXANDRA times 3 days. Patient states for the past 3 days he has noted substernal chest discomfort, comes and goes, nonradiating, describes as a "ache,", improves with rest in approximately 5 minutes, "it is mostly just annoying." Further expresses profound fatigue and dyspnea on exertion with little activity. 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 Associated with diaphoresis. Symptoms improve with rest. He states he sleeps approximately 7-8 hours a night however even after good night sleep still remains very tired, can fall asleep very easily. elicits that he does sleep more frequently. She also feels his appetite has been overall decreased. The patient denies any recent illness, fever, chills, sweats, lightheadedness, dizziness, syncope, change in vision, change in hearing, shortness of breath at rest, hemoptysis, palpitations, cough, nausea, vomiting, diarrhea, change in his bowel or urinary habits. He denies any PND, orthopnea, boogie edema or swelling or change in weight. He does note that he has history of sleep apnea, however he has been intolerant to CPAP. He does follow with sleep medicine and Dr. Mar is aware of this. He also has a tobacco use history in which he chews a proximally 1 can of snuff a day and does have a prior history of smoking, 4-pack-year history. Positive family history of CAD in mother, who is at age 76 secondary to CHF. Patient had something similar approximately 2 years ago in which he did undergo stress test which was negative for ischemia and did follow-up with Dr. Dinero one other time. Echocardiogram performed at that time revealed normal LV chamber size with mild concentric LVH, normal LV systolic function, EF 55%-60%, no segmental wall motion abnormalities were noted, grade 2 diastolic dysfunction, and physiologic/minimal aortic insufficiency. It was thought at that time symptoms were related to a sinusitis. Allergies Allergy/AdvReac Type Severity Reaction Status Date / Time No Known Allergies Allergy Unknown Unverified 08/24/18 12:20 Home Medications Home Medications Medication Instructions Recorded Confirmed Type amlodipine 2.5 mg PO DAILY 08/24/18 09/27/18 History aspirin 81 mg PO DAILY 08/24/18 09/27/18 History atorvastatin 40 mg PO QAM 08/24/18 09/27/18 History venlafaxine 150 mg PO QAM 08/24/18 09/27/18 History Men's Multivitamin 1 tab PO QAM 09/27/18 09/27/18 History calcium carbonate [Calcium 600] 600 mg PO QAM 09/27/18 09/27/18 History fexofenadine 180 mg PO HS 09/27/18 09/27/18 History glucosamine sulfate [Glucosamine] 500 mg PO BID 09/27/18 09/27/18 History Past Med/Surg History Medical History HTN (hypertension) (Chronic) Tobacco abuse (Chronic) GREG (generalized anxiety disorder) (Chronic) Dyslipidemia (Chronic) Anxiety (Chronic) ARLETTE (obstructive sleep apnea) (Chronic) Surgical History History of colonoscopy (Chronic) History of tonsillectomy (Chronic) History of carpal tunnel surgery (Chronic) H/O repair of right rotator cuff (Chronic) History of arthroscopy of left shoulder (Chronic) Family History Mother , 76 Heart disease CHF (congestive heart failure) Father Hypertension Pacemaker Brother Hypertension Stroke, Onset Age: 46 Social History Preferred Language: Icelandic Beliefs That Will Affect Care: None marital status: Current Living Situation: Spouse current occupational status: retired Other Information That Helps Us Care for You: No Feels Safe at Home: Yes Safety Concerns: Feels Safe At This Time Smoking Status: Current every day smoker Hx Alcohol Use: Yes Hx Substance Use: No Review of Systems All systems reviewed & are unremarkable except as noted in HPI & below Physical Exam Vital Signs (Past 24 Hours): Last Vital Signs Temp 36.8 C 09/27/18 10:33 Pulse 59 L 09/27/18 15:01 Resp 16 09/27/18 15:01 BP 131/89 09/27/18 15:01 Pulse Ox 96 09/27/18 15:01 Physical Exam: Gen: WD/WN, M, NAD, sitting up in bed, pleasant but flat affected, conversing easily Head: Normocephalic, Atraumatic Eyes: Sclera normal, no conjunctival injection, PERRLA, EOMI ENT: Gross hearing intact, normal pharynx, mucous membranes moist Neck: supple, no adenopathy, No JVD, no bruit, Resp: Clear to auscultation b/l, no wheeze, rales, rhonchi. 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 Extremities: No edema bilaterally Skin: warm, moist, no rash, negative turgor, cap refill < 2sec Neuro: Alert and oriented x 3, speech normal, good mood/affect, cran nerve 2-12 intact grossly : deferred Results & Data Laboratory Results Short CBC 09/27/18 Range/Units 10:43 WBC 7.24 (4.8-10.8) K/uL Hgb 15.5 (14.0-18.0) g/dL Hct 44.9 (42-52) % Plt Count 201 (130-400) K/uL BMP 09/27/18 10:43 Sodium 138 Potassium 3.8 Chloride 105 Carbon Dioxide 31 BUN 16 Creatinine 0.98 Glucose 97 Calcium 8.6 Cardiac Enzymes 09/27/18 Range/Units 10:43 Troponin I < 0.015 (0-0.045) ng/ml Liver Function 09/27/18 Range/Units 10:43 Total Bilirubin 0.5 (0.2-1) mg/dl AST 15 (15-37) U/L ALT 32 (12-78) U/L Alkaline Phosphatase 94 (45-117) U/L Albumin 3.6 (3.4-5.0) gm/dl Diagnostic Findings CXR: IMPRESSION: No active disease in the chest. Medications Administered Discontinued Medications Aspirin (Aspirin) 324 mg PO NOW STA Stop: 09/27/18 10:52 Last Admin: 09/27/18 11:04 Dose: 324 mg Documented by: [id number] ECG Rate (beats per minute): 63 Rhythm: normal sinus Code Status & VTE Plan Code Status Full Code VTE Prophylaxis Plan VTE Prophylaxis will be ordered: No Supervising Physician Co-Signing Physician Notes Pt was seen an examined. Agreed with Janey exam, assessment and plan. 63-year-old male with past medical history of HTN, HLD, diastolic dysfunction, ARLETTE intolerant to CPAP, GREG presents to the ER with chest pain and SOB on exertion. Intial troponin on admission negative. EKG showed no ischemic changes. Currently denies any chest pain. Will trend troponin and get an echo. Continue asa and statin. Will monitor closely. MD Perry (1) Chest pain Chest pain type: other chest pain Qualified Code(s): R07.89 - Other chest pain; R07.8 - Other chest pain (2) HTN (hypertension) Hypertension type: essential hypertension Qualified Code(s): I10 - Essential (primary) hypertension
[2018-09-27] MEDS ORDERED: NITROGLYCERIN SL 0.4 MG/TAB TAB SL PRN (16:40)
[2018-09-27] MEDS ORDERED: POLYETHYLENE (MIRALAX) 17 GM PACK PO PRN (16:40)
[2018-09-27] MEDS ORDERED: MAGNESIUM HYDROXIDE SUSP 30 ML UDC PO PRN (16:40)
[2018-09-27] MEDS ORDERED: ACETAMINOPHEN 325 MG TAB PO PRN (16:40)
[2018-09-27] MEDS ORDERED: ALUMINUM/MAGNESIUM SUSP 30 ML UDC PO PRN (16:40)
[2018-09-27] MEDS ORDERED: ONDANSETRON INJ 2 MG/ML 2 ML VIAL IV PRN (16:40)
--- NOTE | 2018-09-27 17:25 | Emergency Department Note ---
Entered by Lucrecia Liriano acting as a scribe for History of Present Illness General Chief complaint: Chest Pain Stated complaint: CHEST PAIN,SHORT OF BREATH Time Seen by Provider: 09/27/18 10:45 Source: patient History of Present Illness Onset (ago): day(s) (a few days ago) Location: chest Pain Consistency: + intermittent Maximum Pain Intensity: 3 Quality: no sharp Exacerbated By: + movement (exertion) Associated symptoms: + denies other symptoms (diarrhea, hematochezia, melena, leg swelling, doesn't radiate to arm, jaw or back), + shortness of breath and + other (fatigued, increased gas, increased bowel movements); no diaphoresis and no nausea/vomiting (nausea) The patient is a 63 year old male who presents to the Emergency Room with complaints of intermittent chest pain starting a few days ago. The patient states that he has been feeling down lately. He states that any time he exerts himself, he becomes fatigued quickly, short of breath, and starts to have chest discomfort. He reports that it is in the center of his chest, but isnt a sharp pain. He states that he called his PCP about his symptoms and was sent here today. The patient complains of increased passing gas and having more bowel mov ements than usual. He notes that he had a stress test a few years ago. The patient denies diaphoresis, diarrhea, hematochezia, melena, nausea, leg swelling, his chest pain radiating to his arm, jaw, or back, a history of a heart attack, a history of a stroke, a history of cancer, and a history of any cardiac stents. Home Medications Home Medications Medication Instructions Recorded Confirmed Type amlodipine 2.5 mg PO DAILY 08/24/18 09/27/18 History aspirin 81 mg PO DAILY 08/24/18 09/27/18 History atorvastatin 40 mg PO QAM 08/24/18 09/27/18 History venlafaxine 150 mg PO QAM 08/24/18 09/27/18 History Men's Multivitamin 1 tab PO QAM 09/27/18 09/27/18 History calcium carbonate [Calcium 600] 600 mg PO QAM 09/27/18 09/27/18 History fexofenadine 180 mg PO HS 09/27/18 09/27/18 History glucosamine sulfate [Glucosamine] 500 mg PO BID 09/27/18 09/27/18 History Allergies Allergy/AdvReac Type Severity Reaction Status Date / Time No Known Allergies Allergy Unknown Unverified 08/24/18 12:20 Past Med/Surg History Medical History HTN (hypertension) (Chronic) Tobacco abuse (Chronic) GREG (generalized anxiety disorder) (Chronic) Dyslipidemia (Chronic) Anxiety (Chronic) ARLETTE (obstructive sleep apnea) (Chronic) Surgical History History of colonoscopy (Chronic) History of tonsillectomy (Chronic) History of carpal tunnel surgery (Chronic) H/O repair of right rotator cuff (Chronic) History of arthroscopy of left shoulder (Chronic) Family History Mother , 76 Heart disease CHF (congestive heart failure) Father Hypertension Pacemaker Brother Hypertension Stroke, Onset Age: 46 Social History Preferred Language: [place] Beliefs That Will Affect Care: None marital status: Current Living Situation: Spouse current occupational status: retired Other Information That Helps Us Care for You: No Feels Safe at Home: Yes Safety Concerns: Feels Safe At This Time Smoking Status: Current every day smoker Hx Alcohol Use: Yes Hx Substance Use: No Review of Systems See HPI for pertinent positives & negatives. and A total of 10 systems reviewed and were otherwise negative Physical Exam Vital Signs Vital Signs - 24 hr 09/27/18 10:33 09/27/18 10:46 09/27/18 11:00 Temperature 36.8 C Temperature Source Oral Sepsis Recent Fever Within 48 Hours No Sepsis New/Unexplained Change in Mental Status No Sepsis Action Taken by Nursing No Action Required Pulse Rate 73 64 60 Pulse Rate [Left Apical] Pulse Rhythm [Left Apical] Pulse Strength [Left Apical] Respiratory Rate 18 19 17 Respiratory Effort / Characteristics Non-Labored Spontaneous Respiratory Depth Normal Respiratory Pattern Regular Blood Pressure 154/94 H Blood Pressure [Left Arm] Blood Pressure Mean 114 Blood Pressure Mean [Left Arm] Blood Pressure Position Sitting Blood Pressure Position [Left Arm] Pulse Oximetry 96 Oxygen Delivery Method Room Air 09/27/18 11:02 09/27/18 11:30 09/27/18 11:56 Temperature Temperature Source Sepsis Recent Fever Within 48 Hours Sepsis New/Unexplained Change in Mental Status Sepsis Action Taken by Nursing Pulse Rate 57 L 53 L Pulse Rate [Left Apical] Pulse Rhythm [Left Apical] Pulse Strength [Left Apical] Respiratory Rate 15 13 Respiratory Effort / Characteristics Respiratory Depth Respiratory Pattern Blood Pressure 130/83 Blood Pressure [Left Arm] Blood Pressure Mean 98 Blood Pressure Mean [Left Arm] Blood Pressure Position Blood Pressure Position [Left Arm] Pulse Oximetry 96 Oxygen Delivery Method Room Air 09/27/18 12:00 09/27/18 12:07 09/27/18 12:30 Temperature Temperature Source Sepsis Recent Fever Within 48 Hours Sepsis New/Unexplained Change in Mental Status Sepsis Action Taken by Nursing Pulse Rate 54 L 55 L Pulse Rate [Left Apical] 54 L Pulse Rhythm [Left Apical] Pulse Strength [Left Apical] Respiratory Rate 19 17 12 Respiratory Effort / Characteristics Respiratory Depth Normal Respiratory Pattern Blood Pressure Blood Pressure [Left Arm] 130/83 Blood Pressure Mean Blood Pressure Mean [Left Arm] 98 Blood Pressure Position Blood Pressure Position [Left Arm] Pulse Oximetry 97 Oxygen Delivery Method Room Air 09/27/18 13:00 09/27/18 13:30 09/27/18 15:01 Temperature Temperature Source Sepsis Recent Fever Within 48 Hours Sepsis New/Unexplained Change in Mental Status Sepsis Action Taken by Nursing Pulse Rate 56 L 63 Pulse Rate [Left Apical] 59 L Pulse Rhythm [Left Apical] Pulse Strength [Left Apical] Respiratory Rate 6 L 16 16 Respiratory Effort / Characteristics Respiratory Depth Respiratory Pattern Blood Pressure 128/73 Blood Pressure [Left Arm] 131/89 Blood Pressure Mean 91 Blood Pressure Mean [Left Arm] 103 Blood Pressure Position Blood Pressure Position [Left Arm] Pulse Oximetry 96 Oxygen Delivery Method Room Air 09/27/18 16:25 09/27/18 16:40 Temperature 36.6 C Temperature Source Oral Sepsis Recent Fever Within 48 Hours Sepsis New/Unexplained Change in Mental Status Sepsis Action Taken by Nursing Pulse Rate 78 Pulse Rate [Left Apical] 55 L Pulse Rhythm [Left Apical] Regular Pulse Strength [Left Apical] Normal Respiratory Rate 20 18 Respiratory Effort / Characteristics Non-Labored Spontaneous Respiratory Depth Normal Respiratory Pattern Regular Blood Pressure 121/74 Blood Pressure [Left Arm] 136/82 Blood Pressure Mean Blood Pressure Mean [Left Arm] 100 Blood Pressure Position Blood Pressure Position [Left Arm] Lying Pulse Oximetry 97 95 Oxygen Delivery Method Room Air Room Air Vital signs reviewed. General: Well-appearing, in no significant distress. HEENT: No scleral icterus, PERRLA, neck supple. Atraumatic. Cardiovascular: Regular rate and rhythm, no extra sounds. Pulmonary: Clear to auscultation bilaterally, normal work of breathing. Abdomen: Soft, nontender, nondistended, positive bowel sounds. Musculoskeletal: Atraumatic, no peripheral edema. Neurologic: Patient awake alert and oriented x 3 Skin: Warm, dry, no rash Course 1048: Past medical records reviewed. The patient was evaluated in room C8, and a complete history and physical examination were performed. 1417: I reevaluated the patient and updated him on his test results at this time. I discussed the treatment plan with him at this time. He verbally agrees and understands. 1422: I reviewed the patient's case with SYLVAIN Huynh. She will evaluate the patient for further management. Consultations Consultation #1: I reviewed the patient's case with SYLVAIN Huynh. She will evaluate the patient for further management. Time: 14:22 Administered Medications Discontinued Medications Amlodipine Besylate (Norvasc) 2.5 mg PO DAILY JOANIE Stop: 10/28/18 08:59 Last Admin: 09/28/18 07:39 Dose: 2.5 mg Documented by: [id number] Aspirin (Aspirin) 324 mg PO NOW [facility] Stop: 09/27/18 10:52 Last Admin: 09/27/18 11:04 Dose: 324 mg Documented by: [id number] Aspirin (Ecotrin Ectab) 81 mg PO DAILY JOANIE Stop: 10/28/18 08:59 Last Admin: 09/28/18 07:38 Dose: 81 mg Documented by: [id number] Atorvastatin Calcium (Lipitor) 40 mg PO QAM JOANIE Stop: 10/28/18 08:59 Last Admin: 09/28/18 07:38 Dose: 40 mg Documented by: [id number] Calcium Carbonate (Os-Dani 500) 1,250 mg PO QAM JOANIE Stop: 10/28/18 08:59 Last Admin: 09/28/18 07:39 Dose: 1,250 mg Documented by: [id number] Fexofenadine HCl (Taylor) 180 mg PO HS JOANIE Stop: 10/27/18 20:59 Last Admin: 09/27/18 19:52 Dose: 180 mg Documented by: [id number] Multivitamins/Minerals (Multivitamin W/ Minerals Tab) 1 tab PO QAM JOANIE Stop: 10/28/18 08:59 Last Admin: 09/28/18 07:39 Dose: 1 tab Documented by: [id number] Venlafaxine HCl (Effexor Extended Release) 150 mg PO QAM [facility] Stop: 10/28/18 08:59 Last Admin: 09/28/18 07:39 Dose: 150 mg Documented by: [id number] Medical Decision Making Differential Diagnosis DDx: Acute coronary syndrome, pulmonary embolus, aortic dissection, musculoskeletal pain, pneumonia, pleural effusion, pneumothorax, GERD, peptic ulcer disease. Medical Records Attestation: I reviewed the patient's medical records. Home Medications Current Medication List: was personally reviewed by me Laboratory Data Attestation: I reviewed the patient's lab results. Result diagrams: 09/28/18 05:51 09/28/18 05:51 Lab Results 09/27/18 09/27/18 09/27/18 Range/Units 10:43 10:43 10:43 WBC 7.24 (4.8-10.8) K/uL RBC 4.90 (4.7-6.1) M/uL Hgb 15.5 (14.0-18.0) g/dL Hct 44.9 (42-52) % MCV 91.6 (80-100) fL MCH 31.6 (25-34) pg MCHC 34.5 (32-36) g/dL RDW Std Deviation 42.1 (36.4-46.3) fL RDW Coeff of Leonid 12.5 (11.5-14.5) % Plt Count 201 (130-400) K/uL MPV 9.5 (7.4-10.4) fL Immature Gran % (Auto) 0.3 % Neut % (Auto) 67.7 % Lymph % (Auto) 22.8 % Boyd % (Auto) 5.0 % Eos % (Auto) 3.9 % Baso % (Auto) 0.3 % Immature Gran # (Auto) 0.02 (0.00-0.02) K/uL Neut # (Auto) 4.91 (1.4-6.5) K/uL Lymph # (Auto) 1.65 (1.2-3.4) K/uL Boyd # (Auto) 0.36 (0.11-0.59) K/uL Eos # (Auto) 0.28 (0-0.5) K/uL Baso # (Auto) 0.02 (0-0.2) K/uL D-Dimer < 190 (0-500) ug/L FEU Sodium 138 (136-145) mmol/L Potassium 3.8 (3.5-5.1) mmol/L Chloride 105 (98-107) mmol/L Carbon Dioxide 31 (21-32) mmol/L Anion Gap 2.0 L (3-11) BUN 16 (7-18) mg/dl Creatinine 0.98 (0.6-1.4) mg/dl Est Cr Clr Drug Dosing 73.5 ml/min Est GFR ( Amer) 93.4 Est GFR (Non-Af Amer) 80.6 BUN/Creatinine Ratio 15.8 (10-20) Glucose 97 (70-99) mg/dl Calcium 8.6 (8.5-10.1) mg/dl Total Bilirubin 0.5 (0.2-1) mg/dl AST 15 (15-37) U/L ALT 32 (12-78) U/L Alkaline Phosphatase 94 (45-117) U/L Troponin I < 0.015 (0-0.045) ng/ml Total Protein 7.1 (6.4-8.2) gm/dl Albumin 3.6 (3.4-5.0) gm/dl Globulin 3.5 (2.5-4.0) gm/dl Albumin/Globulin Ratio 1.0 (0.9-2) Triglycerides (0-150) mg/dl Cholesterol (0-200) mg/dl LDL Cholesterol, Calc mg/dl VLDL Cholesterol, Calc mg/dl HDL Cholesterol mg/dl Cholesterol/HDL Ratio Lipase 215 (73-393) U/L TSH (0.300-4.500) uIu/ml 09/27/18 09/27/18 09/27/18 Range/Units 10:43 16:54 22:28 WBC (4.8-10.8) K/uL RBC (4.7-6.1) M/uL Hgb (14.0-18.0) g/dL Hct (42-52) % MCV (80-100) fL MCH (25-34) pg MCHC (32-36) g/dL RDW Std Deviation (36.4-46.3) fL RDW Coeff of Leonid (11.5-14.5) % Plt Count (130-400) K/uL MPV (7.4-10.4) fL Immature Gran % (Auto) % Neut % (Auto) % Lymph % (Auto) % Boyd % (Auto) % Eos % (Auto) % Baso % (Auto) % Immature Gran # (Auto) (0.00-0.02) K/uL Neut # (Auto) (1.4-6.5) K/uL Lymph # (Auto) (1.2-3.4) K/uL Boyd # (Auto) (0.11-0.59) K/uL Eos # (Auto) (0-0.5) K/uL Baso # (Auto) (0-0.2) K/uL D-Dimer (0-500) ug/L FEU Sodium (136-145) mmol/L Potassium (3.5-5.1) mmol/L Chloride (98-107) mmol/L Carbon Dioxide (21-32) mmol/L Anion Gap (3-11) BUN (7-18) mg/dl Creatinine (0.6-1.4) mg/dl Est Cr Clr Drug Dosing ml/min Est GFR ( Amer) Est GFR (Non-Af Amer) BUN/Creatinine Ratio (10-20) Glucose (70-99) mg/dl Calcium (8.5-10.1) mg/dl Total Bilirubin (0.2-1) mg/dl AST (15-37) U/L ALT (12-78) U/L Alkaline Phosphatase (45-117) U/L Troponin I < 0.015 < 0.015 (0-0.045) ng/ml Total Protein (6.4-8.2) gm/dl Albumin (3.4-5.0) gm/dl Globulin (2.5-4.0) gm/dl Albumin/Globulin Ratio (0.9-2) Triglycerides (0-150) mg/dl Cholesterol (0-200) mg/dl LDL Cholesterol, Calc mg/dl VLDL Cholesterol, Calc mg/dl HDL Cholesterol mg/dl Cholesterol/HDL Ratio Lipase (73-393) U/L TSH 0.997 (0.300-4.500) uIu/ml 09/28/18 09/28/18 Range/Units 05:51 05:51 WBC 8.02 (4.8-10.8) K/uL RBC 5.05 (4.7-6.1) M/uL Hgb 15.9 (14.0-18.0) g/dL Hct 46.9 (42-52) % MCV 92.9 (80-100) fL MCH 31.5 (25-34) pg MCHC 33.9 (32-36) g/dL RDW Std Deviation 42.3 (36.4-46.3) fL RDW Coeff of Leonid 12.6 (11.5-14.5) % Plt Count 207 (130-400) K/uL MPV 9.7 (7.4-10.4) fL Immature Gran % (Auto) % Neut % (Auto) % Lymph % (Auto) % Boyd % (Auto) % Eos % (Auto) % Baso % (Auto) % Immature Gran # (Auto) (0.00-0.02) K/uL Neut # (Auto) (1.4-6.5) K/uL Lymph # (Auto) (1.2-3.4) K/uL Boyd # (Auto) (0.11-0.59) K/uL Eos # (Auto) (0-0.5) K/uL Baso # (Auto) (0-0.2) K/uL D-Dimer (0-500) ug/L FEU Sodium 138 (136-145) mmol/L Potassium 3.9 (3.5-5.1) mmol/L Chloride 108 H (98-107) mmol/L Carbon Dioxide 27 (21-32) mmol/L Anion Gap 3.0 (3-11) BUN 22 H (7-18) mg/dl Creatinine 0.99 (0.6-1.4) mg/dl Est Cr Clr Drug Dosing 72.7 ml/min Est GFR ( Amer) 92.2 Est GFR (Non-Af Amer) 79.6 BUN/Creatinine Ratio 22.3 H (10-20) Glucose 105 H (70-99) mg/dl Calcium 8.2 L (8.5-10.1) mg/dl Total Bilirubin (0.2-1) mg/dl AST (15-37) U/L ALT (12-78) U/L Alkaline Phosphatase (45-117) U/L Troponin I (0-0.045) ng/ml Total Protein (6.4-8.2) gm/dl Albumin (3.4-5.0) gm/dl Globulin (2.5-4.0) gm/dl Albumin/Globulin Ratio (0.9-2) Triglycerides 207 H (0-150) mg/dl Cholesterol 161 (0-200) mg/dl LDL Cholesterol, Calc 81 mg/dl VLDL Cholesterol, Calc 41 mg/dl HDL Cholesterol 39 mg/dl Cholesterol/HDL Ratio 4 Lipase (73-393) U/L TSH (0.300-4.500) uIu/ml Imaging Data Radiologist's Impression: Radiology results as stated below per my review and the radiologist's interpretation: SINGLE VIEW CHEST CLINICAL HISTORY: Atypical chest pain. FINDINGS: An AP, portable, upright chest radiograph is compared to study dated 10/27/2016. The examination is degraded by portable technique and apical lordotic positioning. The cardiomediastinal silhouette is unremarkable. The lungs and pleural spaces are clear. No pneumothorax is seen. There are healed left-sided rib fractures. IMPRESSION: No active disease in the chest. Electronically signed by: Himanshu Sánchez M.D. 09/27/2018 11:37 AM ECG Data Attestation: I personally reviewed and interpreted this ECG as follows: Indication: chest pain Rate (beats per minute): 63 Rhythm: normal sinus Findings: + other (LAD, QT-c 425); no ST depression, no ST elevation, no acute ischemic change and no ectopy Blood Pressure Blood Pressure Findings: Normal blood pressure Blood Pressure Disposition: did not require urgent referral MDM Narrative This pt was evaluated and appeared to be in no distress. IV access was obtained and lab work was drawn. Pt was given ASA 324 mg po. EKG reveals no acute changes. CXR is clear. Given pt's h/o chest pain, SOB with exertion, case was d/w the hospitalist service for further management. He was informed of the findings and agrees with the plan for further management. Impression & Plan Substernal chest pain, ALEXANDRA (dyspnea on exertion) Discharge Plan Visit Data *Final* Discharge Date/Time: 09/27/18 16:25 Chief Complaint: Chest Pain Stated Complaint: CHEST PAIN,SHORT OF BREATH ED Provider: Shelbie Snell Discharge Problem: Substernal chest pain, ALEXANDRA (dyspnea on exertion) Patient Disposition: Admitted As Inpatient Discharge Instructions Interventions: ED Discharge Assessment Last Done: 09/27/18 16:25 The scribe's documentation has been prepared under my direction and personally reviewed by me in its entirety. I confirm that the note above accurately reflects all work, treatment, procedures, and medical decision making performed by me.
[2018-09-27] MEDS ORDERED: FEXOFENADINE HCL 180 MG TAB PO SCH (21:00)
[2018-09-27] MEDS ORDERED: NON-FORMULARY MEDICATION (Glucosamine Sulfate [Glucosamine] 500 MG) PO SCH (21:00)
[2018-09-28 06:30] LABS: Hematocrit (blood only) 46.9 % (42-52); Hemoglobin 15.9 g/dL (14.0-18.0); Mean Corpuscular Hgb Conc 33.9 g/dL (32-36); Mean Corpuscular Volume 92.9 fL (80-100); Mean Platelet Volume 9.7 fL (7.4-10.4); Platelet Count 207 K/uL (130-400); RDW Coefficient of Variation 12.6 % (11.5-14.5); RDW Standard Deviation 42.3 fL (36.4-46.3); Red Blood Count 5.05 M/uL (4.7-6.1); White Blood Count 8.02 K/uL (4.8-10.8)
[2018-09-28 07:05] LABS: BUN Creatinine Ratio 22.3 (10-20); Calcium 8.2 mg/dl (8.5-10.1); Creatinine Clr Calc Pharmacy 72.7 ml/min; Est GFR (African American) 92.2; Est GFR (Non-African American) 79.6; Potassium 3.9 mmol/L (3.5-5.1)
[2018-09-28] MEDS ORDERED: CEROVITE ADV FORMULA TAB PO SCH (09:00)
[2018-09-28] MEDS ORDERED: CALCIUM CARBONATE 1250MG TAB PO SCH (09:00)
[2018-09-28] MEDS ORDERED: ASPIRIN 81 MG ECTAB PO SCH (09:00)
[2018-09-28] MEDS ORDERED: VENLAFAXINE HCL XR 150 MG CAPXR PO SCH (09:00)
[2018-09-28] MEDS ORDERED: ATORVASTATIN 40 MG TAB PO SCH (09:00)
[2018-09-28] MEDS ORDERED: AMLODIPINE BESYLATE 5 MG TAB PO SCH (09:00)
--- NOTE | 2018-09-28 13:38 | Hospitalist Progress Note ---
Date of Service September 28, 2018 Assessment & Plan (1) Chest pain: Mostly atypical feature Currently denies any chest pain Troponinx 3 sets negative EKG showed no ischemic changes ECHO showed no wall motion abnormality with EF 60-65% No arrhythmia on tele monitor Consider ouptatient stress test Continue aspirin and statin (2) HTN (hypertension): Blood pressure controlled continue amlodipine (3) Dyslipidemia: Continue statin LDL 80 and cholesterol 161 Stable (4) ARLETTE (obstructive sleep apnea): Patient intolerant to CPAP/BiPAP Advised pt that he should to get a different mask for his CPAP will need outpatient pulmonary/sleep medicine (5) GREG (generalized anxiety disorder): Continue venlafaxine (6) Tobacco abuse: Counseling on smoking cessation (7) DVT prophylaxis: Pt ambulateing Disposition: Will discharge home today Subjective Pt was seen and examined Lying in bed with no distress Pt said that he feels fine He said that he slept well He denies any chest pain, palpitation, dizziness and SOB Physical Exam Vital Signs (Past 24 Hours): Last Vital Signs Temp 36.6 C 09/28/18 11:39 Pulse 58 L 09/28/18 11:39 Resp 20 09/28/18 11:39 BP 124/77 09/28/18 11:39 Pulse Ox 93 09/28/18 11:39 Physical Exam: General- No acute distress Head- atraumatic Eyes- PERRL, EOMI, ENT- oropharynx clear Neck- supple, no JVD Lungs- clear to auscultation Heart- regular rhythm Abdomen- normal bowel sounds, soft, nontender Extremities- no calf tenderness Neuro- alert, oriented x 3; PERRL, EOMI; no facial palsy; no dysarthria Skin- warm & dry (1) Chest pain Chest pain type: other chest pain Qualified Code(s): R07.89 - Other chest pain; R07.8 - Other chest pain (2) HTN (hypertension) Hypertension type: essential hypertension Qualified Code(s): I10 - Essential (primary) hypertension
--- NOTE | 2018-09-29 11:59 | Discharge Summary ---
Date of Service October 01, 2018 Admission HPI Per Admitting Provider This is a 63-year-old male with significant past medical history of HTN, HLD, diastolic dysfunction, ARLETTE intolerant to CPAP, tobacco abuse, GREG presents to [facility] secondary to chest pain and ALEXANDRA times 3 days. Patient states for the past 3 days he has noted substernal chest discomfort, comes and goes, nonradiating, describes as a "ache,", improves with rest in approximately 5 minutes, "it is mostly just annoying." Further expresses profound fatigue and dyspnea on exertion with little activity. 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 Associated with diaphoresis. Symptoms improve with rest. He states he sleeps approximately 7-8 hours a night however even after good night sleep still remains very tired, can fall asleep very easily. elicits that he does sleep more frequently. She also feels his appetite has been overall decreased. The patient denies any recent illness, fever, chills, sweats, lightheadedness, dizziness, syncope, change in vision, change in hearing, shortness of breath at rest, hemoptysis, palpitations, cough, nausea, vomiting, diarrhea, change in his bowel or urinary habits. He denies any PND, orthopnea, boogie edema or swelling or change in weight. He does note that he has history of sleep apnea, however he has been intolerant to CPAP. He does follow with sleep medicine and Dr. Mar is aware of this. He also has a tobacco use history in which he chews a proximally 1 can of snuff a day and does have a prior history of smoking, 4-pack-year history. Positive family history of CAD in mother, who is at age 76 secondary to CHF. Patient had something similar approximately 2 years ago in which he did undergo stress test which was negative for ischemia and did follow-up with Dr. Dinero one other time. Echocardiogram performed at that time revealed normal LV chamber size with mild concentric LVH, normal LV systolic function, EF 55%-60%, no segmental wall motion abnormalities were noted, grade 2 diastolic dysfunction, and physiologic/minimal aortic insufficiency. It was thought at that time symptoms were related to a sinusitis. Discharge Data Consultations 09/27/18 14:23 ED Decision to Admit Stat
--- NOTE | 2018-09-29 23:45 | Discharge Summary ---
Date of Service September 28, 2018 Admission HPI Per Admitting Provider This is a 63-year-old male with significant past medical history of HTN, HLD, diastolic dysfunction, ARLETTE intolerant to CPAP, tobacco abuse, GREG presents to [facility] secondary to chest pain and ALEXANDRA times 3 days. Patient states for the past 3 days he has noted substernal chest discomfort, comes and goes, nonradiating, describes as a "ache,", improves with rest in approximately 5 minutes, "it is mostly just annoying." Further expresses profound fatigue and dyspnea on exertion with little activity. 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 Associated with diaphoresis. Symptoms improve with rest. He states he sleeps approximately 7-8 hours a night however even after good night sleep still remains very tired, can fall asleep very easily. elicits that he does sleep more frequently. She also feels his appetite has been overall decreased. The patient denies any recent illness, fever, chills, sweats, lightheadedness, dizziness, syncope, change in vision, change in hearing, shortness of breath at rest, hemoptysis, palpitations, cough, nausea, vomiting, diarrhea, change in his bowel or urinary habits. He denies any PND, orthopnea, boogie edema or swelling or change in weight. He does note that he has history of sleep apnea, however he has been intolerant to CPAP. He does follow with sleep medicine and Dr. Mar is aware of this. He also has a tobacco use history in which he chews a proximally 1 can of snuff a day and does have a prior history of smoking, 4-pack-year history. Positive family history of CAD in mother, who is at age 76 secondary to CHF. Patient had something similar approximately 2 years ago in which he did undergo stress test which was negative for ischemia and did follow-up with Dr. Dinero one other time. Echocardiogram performed at that time revealed normal LV chamber size with mild concentric LVH, normal LV systolic function, EF 55%-60%, no segmental wall motion abnormalities were noted, grade 2 diastolic dysfunction, and physiologic/minimal aortic insufficiency. It was thought at that time symptoms were related to a sinusitis. Admission Exam Per Admitting Provider Gen: WD/WN, M, NAD, sitting up in bed, pleasant but flat affected, conversing easily Head: Normocephalic, Atraumatic Eyes: Sclera normal, no conjunctival injection, PERRLA, EOMI ENT: Gross hearing intact, normal pharynx, mucous membranes moist Neck: supple, no adenopathy, No JVD, no bruit, Resp: Clear to auscultation b/l, no wheeze, rales, rhonchi. 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 Extremities: No edema bilaterally Skin: warm, moist, no rash, negative turgor, cap refill < 2sec Neuro: Alert and oriented x 3, speech normal, good mood/affect, cran nerve 2-12 intact grossly : deferred Principal Diagnosis Chest pain Discharge Exam General- No acute distress Head- atraumatic Eyes- PERRL, EOMI, ENT- oropharynx clear Neck- supple, no JVD Lungs- clear to auscultation Heart- regular rhythm Abdomen- normal bowel sounds, soft, nontender Extremities- no calf tenderness Neuro- alert, oriented x 3; PERRL, EOMI; no facial palsy; no dysarthria Skin- warm & dry Discharge Data Allergies Allergy/AdvReac Type Severity Reaction Status Date / Time No Known Allergies Allergy Unknown Unverified 08/24/18 12:20 Consultations 09/27/18 14:23 ED Decision to Admit Stat Ordered Studies SINGLE VIEW CHEST CLINICAL HISTORY: Atypical chest pain. FINDINGS: An AP, portable, upright chest radiograph is compared to study dated 10/27/2016. The examination is degraded by portable technique and apical lordotic positioning. The cardiomediastinal silhouette is unremarkable. The lungs and pleural spaces are clear. No pneumothorax is seen. There are healed left-sided rib fractures. IMPRESSION: No active disease in the chest. Electronically signed by: Himanshu Sánchez M.D. 09/27/2018 11:37 AM Dictated: 09/27/18 1136 Transcribed: 09/27/18 1136 Hospital Course (1) Chest pain: This is a 63-year-old male with significant past medical history of HTN, HLD, diastolic dysfunction, ARLETTE intolerant to CPAP, tobacco abuse, GREG presents to [facility] secondary to chest pain and ALEXANDRA times 3 days. In ED workup relatively unremarkable. Blood pressure adequate at 128/73, initial troponin within normal limits, chest x-ray negative for acute abnormality, EKG normal sinus rhythm without ST or T wave changes. Further lab work including a CBC, CMP, d-dimer, lipase, TSH were within normal limits. DDX but not limited to: Coronary artery disease, obstructive sleep apnea-not tolerating CPAP, possible COPD given prior smoking history, pulmonary hypertension, valvular heart disease -Admit to telemetry under observation -Obtain resting echocardiogram -Serial troponins -Repeat ECG in a.m. -If workup unremarkable refer back to Dr. Dinero for repeat stress testing as well as follow-up with pulmonary/sleep medicine -Continue ASA/statin therapy -Obtain fasting lipid panel in a.m. (2) HTN (hypertension): Blood pressure controlled continue amlodipine (3) Dyslipidemia: Continue statin LDL 80 and cholesterol 161 Stable (4) ARLETTE (obstructive sleep apnea): Patient intolerant to CPAP/BiPAP Advised pt that he should to get a different mask for his CPAP will need outpatient pulmonary/sleep medicine (5) GREG (generalized anxiety disorder): Continue venlafaxine (6) Tobacco abuse: Counseling on smoking cessation (7) DVT prophylaxis: Pt ambulateing Disposition: Will discharge home today Total Time Total Time Spent Total Time Spent (In Minutes): 35 minutes Total Time Includes: Examination of the Patient, Discharge Planning, Medication Reconciliation, Communication With Other Providers and Other Discharge Plan Discharge Items Patient Disposition: Home - Self-Care Reason For Visit: CHEST PAIN Discharge Diagnosis: Chest pain Discharge Goals: Decrease discomfort, Improve disease control, Improve function and Increase independence Activity: Resume your previous activity Activity Comment: as tolerated Non-emergency contact: Primary Care Provider Call non-emergency contact if: you have any medication questions and your pain is unusual for you Follow-up/Referrals: Héctor Mar MD [Primary Care Provider] - Diet: Heart Healthy Addtl Provider Instructions: Follow up with your primary care provider Dr. Mar within 1 week (Office will call you for the appointment) You will need outpatient follow with sleep medicine Counseling on smoking cessation Prescriptions: Continued atorvastatin 40 mg tablet 40 mg PO QAM RF: 0 venlafaxine 150 mg capsule,extended release 24hr 150 mg PO QAM RF: 0 amlodipine 2.5 mg tablet 2.5 mg PO DAILY RF: 0 aspirin 81 mg Tablet,Delayed Release (Dr/Ec) 81 mg PO DAILY RF: 0 calcium carbonate [Calcium 600] 600 mg calcium (1,500 mg) Tablet 600 mg PO QAM RF: 0 Men's Multivitamin 400-20-300 mcg Tablet 1 tab PO QAM RF: 0 glucosamine sulfate [Glucosamine] 500 mg Tablet 500 mg PO BID RF: 0 fexofenadine 180 mg Tablet 180 mg PO HS RF: 0 Stand-Alone Forms: Call Back Authorization, [facility] Discharge Orders: Discharge Order (Routine); Ordered 09/28/18 Ordered By: Greta Amador Admission Data Admit Date/Time: 09/27/18 14:58 Attending Provider: Greta Amador Admit Provider: Greta Amador Primary Care Provider: Héctor Mar Other Providers: Greta Amador Service: Telemetry Medical Other Interventions: Discharge Summary Assessment (RN) Last Done: 09/28/18 14:29 DC Date/Time DO NOT enter until pt leaves facility: 09/28/18 15:00
== END 2018-09-28 15:00 | disposition home or self-care (01) ==
LOC: 2N 10:31 → ED 10:31 → 2N 16:25